=== PATIENT | female | born 1955 | race Hispanic/Latino ===

== ENCOUNTER 2023-08-08 21:05 | Emergency (ER) | payer SELFPAY ==
[~2023-08-08] VITALS: Ht 157.5 cm; Wt 79.3 kg
[2023-08-08 21:06] VITALS: BP 170/86; TEMP 100.2; O2SAT 96
[2023-08-08] MEDS ORDERED: PRED20TA PO (21:26)
[2023-08-08] MEDS ORDERED: SODI88SP NARES (21:26)
[2023-08-08] MEDS ORDERED: VENTAER INH (21:26)
[2023-08-08] MEDS ORDERED: TREL1AER PO (21:26)
[2023-08-08] MEDS ORDERED: FASE30IN SC (21:27)
== END 2023-08-09 00:30 | disposition left against medical advice (07) ==
LOC: M ED 21:05
DX: Z53.21 Procedure and treatment not carried out due to patient leaving prior to being seen by health care provider (principal)

== ENCOUNTER 2024-07-18 17:55 | Emergency (ER) | payer MEDICARE, OTHER, SELFPAY ==
[~2024-07-18] VITALS: Ht 157.5 cm; Wt 81.1 kg
[~2024-07-18 17:55] MED LIST: FASE30IN SC; PRED20TA PO; SODI88SP NARES; TREL1AER PO; VENTAER INH
[2024-07-18] MEDS: ACETAMINOPHEN 325 MG TAB PO ONE (19:05)
[2024-07-18] MEDS: NS (Normal Saline) 0.9% 1,000 ML IV ONE (20:39)
[2024-07-18 20:42] LABS: BASO # 0.1 10^3/uL (0.0-0.2); BASO % 0.4 % (0.0-1.0); EOS # 0.2 10^3/uL (0.0-0.5); EOS % 1.1 % (0.0-3.0); HEMATOCRIT 39.5 % (36.0-47.0); HEMOGLOBIN 13.3 g/dl (12.0-15.5); LYMPH # 2.6 10^3/uL (1.5-5.0); MEAN CORPUSCULAR HEMOGLOBIN 28.8 pg (27.0-33.0); MEAN CORPUSCULAR HGB CONC 33.7 g/dl (32.0-36.5); MEAN CORPUSCULAR VOLUME 85.5 fl (80.0-96.0); MONO # 0.9 10^3/uL (0.0-0.8); MONO % 5.9 % (2.0-8.0); NEUTROPHILS # 11.3 10^3/uL (1.5-8.5); NEUTROPHILS % 75.3 % (36.0-66.0); PLATELET COUNT, AUTOMATED 282 10^3/uL (150-450); RED BLOOD COUNT 4.62 10^6/uL (4.00-5.40)
[2024-07-18] MEDS: IPRATROPIUM 0.5MG/ALBUTEROL 2.5MG INH SOL UD 3ML (DUONEB) NEB ONE ×2 (20:51→22:32)
[2024-07-18 21:15] LABS: ALBUMIN 3.5 G/DL (3.2-5.2); ALKALINE PHOSPHATASE 99 U/L (35-104); ALT/SGPT 30 U/L (7.0-40); AST/SGOT 22 U/L (<34); BILIRUBIN,TOTAL 0.5 MG/DL (0.3-1.2); BLOOD UREA NITROGEN 10 MG/DL (9-23); CARBON DIOXIDE LEVEL 26 MMOL/L (20-31); CHLORIDE LEVEL 105 MMOL/L (98-107); CREATININE FOR GFR 0.93 MG/DL (0.55-1.30); GLOMERULAR FILTRATION RATE > 60.0 (>45); GLUCOSE, FASTING 100 MG/DL (74-106); POTASSIUM SERUM 3.8 MMOL/L (3.5-5.1); SODIUM LEVEL 142 MMOL/L (136-145)
[2024-07-18] MEDS ORDERED: PRED20TA PO (22:20)
[2024-07-18] MEDS ORDERED: AZIT500T5 PO (22:20)
[2024-07-18] MEDS ORDERED: BENZ200C70 PO (22:20)
[2024-07-18] MEDS: methylPREDNISolone 125MG 2ML VIAL IV ONE (22:25)
[2024-07-18] MEDS: BENZONATATE 100MG CAPSULE PO ONE (22:25)
[2024-07-18] MEDS: AZITHROMYCIN 250MG TABLET PO ONE (22:25)
[2024-07-18 22:47] VITALS: BP 143/64; TEMP 97.3; O2SAT 96
== END 2024-07-18 22:47 | disposition home or self-care (01) ==
LOC: M ED 17:55
DX: A31.2 Disseminated mycobacterium avium-intracellulare complex (DMAC) (principal); J06.9 Acute upper respiratory infection, unspecified; B34.1 Enterovirus infection, unspecified; Z88.5 Allergy status to narcotic agent; Z79.2 Long term (current) use of antibiotics; Z79.51 Long term (current) use of inhaled steroids; Z79.52 Long term (current) use of systemic steroids; Z79.899 Other long term (current) drug therapy
CPT/HCPCS: 71045; 80053; 84145; 85025; 87486; 87581; 87633; 87798; 94640; 96361; 96374; 99284; J2919